=== PATIENT | female | born 1990 | race Caucasian/White ===

== ENCOUNTER → 2020-09-09 09:26 | Outpatient (CLI) | payer OTHER, SELFPAY ==
--- NOTE | ~2020-09-09 | US_ITS ---
EXAMINATION: US breast RT complete HISTORY: Diffuse pain of the right breast. TECHNIQUE: Complete right breast ultrasound is performed including all four quadrants and the subareo lar breast FINDINGS: No sonographic correlate is identified for the patient's reported right breast pain. There is no suspicious cystic or solid mass. IMPRESSION: No specific sonographic correlate is identified for the reported patient's right breast pain. Further evaluation at this time should be based on clinical assessment. Continued follow-up physical examina tion is recommended. BI-RADS Category 1: Negative Reviewed, dictated and finalized at location A. IMPRESSION: No specific sonographic correlate is identified for the reported patient's righ t breast pain. Further evaluation at this time should be based on clinical asse ssment. Continued follow-up physical examination is recommended. BI-RADS Category 1: Negative
== END ==
PROVIDERS: Visit Provider Obstetrics & Gynecology
DX: N64.4 Mastodynia (principal)
CPT/HCPCS: 76641